=== PATIENT | female | born 1950 | race Caucasian/White ===

== ENCOUNTER 2016-10-16 08:09 | Emergency (ER) | payer OTHER ==
[2016-10-16 08:26] VITALS: BP 146/100; PULSE 87; RESP 18; TEMP 98; O2SAT 97
--- NOTE | 2016-10-16 08:47 | UCPHY ---
H & P Time Seen by Provider: 10/16/16 08:17 Patient Type: Established HPI/ROS: 66-year-old female presents complaining cough, cold symptoms for several days Patient states she smokes weed daily, denies cigarette use. She has been trying Echinacea for her cold. Review of systems General positive fevers positive chills no weakness HEENT no eye pain no eye discharge. No eye redness, no sore throat Respiratory positive cough, no shortness of breath Cardiac no chest pain, no peripheral edema GI no abdominal pain, no diarrhea, no constipation, no nausea, no vomiting no flank pain, no hematuria, no dysuria Musculoskeletal no myalgias, no joint pain Heme no easy bruising, no easy bleeding Endo no polyuria, no polydipsia Skin no rashes, no pruritus Neuro no syncope, no dizziness, no headaches Psych is no suicidal ideation, no homicidal ideation Past Medical/Surgical History: Depression Hypertension Social History: Cannabinoids daily Smoking Status: Never smoked Physical Exam: 66-year-old female Alert and oriented nontoxic appearance, no acute distress afebrile Atraumatic normocephalic Extraocular muscles intact, anicteric Nares mild yellowish discharge Oropharynx mild erythema no tonsillar swelling no exudate no uvular deviation, tolerating own secretions Neck supple no lymphadenopathy Lungs clear to auscultation bilaterally Heart regular rate and rhythm Abdomen normoactive bowel sounds soft nontender Extremities no cyanosis clubbing or edema Skin no rash Constitutional: Initial Vital Signs Temperature (C) 36.6 C 10/16/16 08:22 Heart Rate 87 10/16/16 08:22 Respiratory Rate 18 10/16/16 08:22 Blood Pressure 146/100 H 10/16/16 08:22 O2 Sat (%) 97 10/16/16 08:22 O2 Delivery Mode Room Air Allergies/Adverse Reactions: Sulfa (Sulfonamide Antibiotics) Allergy (Mild, Verified 06/04/16 11:26) Rash Home Medications: Medication Instructions Recorded Bisoprolol Fumarate/Hctz 1 each PO DAILY 01/08/13 [Bisoprolol-Hctz 5-6.25 mg Tab] Vitamin B Complex [Vitamin B 1 each PO DAILY 01/08/13 Complex (OTC)] Antidepressant 06/04/16 AZITHROMYCIN [Z-PACK] 250 mg PO DAILY #6 tab 10/16/16 Acetaminophen with Codeine 1 each PO DAILY PRN #10 tablet 10/16/16 [Acetaminophen-Cod #4 Tablet] Benzonatate [Tessalon Pearles (RX)] 200 mg PO TID PRN #30 cap 10/16/16 Medical Decision Making - Diagnostics Imaging: Chest x-ray negative ED Course/Re-evaluation: Patient seen and evaluated for cough fevers chills body aches Differential diagnosis URI, bronchitis, pneumonia, and influenza Influenza negative Chest x-ray negative Impression Bronchitis Plan Zithromax Acetaminophen with codeine for cough suppression at bedtime Michael Jean Follow up with primary care physician - [facility] Laboratory Results: 10/16/16 08:35 Influenza Typ A,B (DFA) NEGATIVE FOR FLU (NEGATIVE) Departure - Departure Disposition: Home, Routine, Self-Care Clinical Impression: Bronchitis Condition: Good Instructions: Acute Bronchitis (ED) Referrals: [place],. [Primary Care Provider] - As per Instructions Prescriptions: Acetaminophen with Codeine [Acetaminophen-Cod #4 Tablet] 1 each PO DAILY PRN # 10 tablet PRN Reason: Cough, Severe Benzonatate [Tessalon Pearles (RX)] 200 mg PO TID PRN #30 cap PRN Reason: Cough, Severe AZITHROMYCIN [Z-PACK] 250 mg PO DAILY #6 tab - PQRS PQRS Measurement: na
--- NOTE | 2016-10-16 09:41 | DX ---
Chest, PA and lateral. History: Cough. COMPARISON: May 2016 Findings: Heart size is within normal limits. Pulmonary vascularity is normal. The lungs are clear. No evidence of pleural effusion or pneumothorax. Mild degenerative change is seen in the thoracic sp ine. Impression: No evidence of acute cardiopulmonary abnormality.
== END 2016-10-16 09:15 | disposition home or self-care (01) ==
LOC: CED 08:09
DX: J40 Bronchitis, not specified as acute or chronic (principal); F12.20 Cannabis dependence, uncomplicated
CPT/HCPCS: 71020; G0463; 87400-PO; 99215-PO

== ENCOUNTER → 2018-02-01 | Outpatient (CLI) | payer OTHER | LOC: FIMAGING 12:42 | PROVIDERS: ATTEND Physician Assistant | DX: Z12.31 Encounter for screening mammogram for malignant neoplasm of breast (principal) ==

== ENCOUNTER → 2019-03-20 | Outpatient (CLI) | payer OTHER | LOC: FIMAGING 10:37 ==